=== PATIENT | male | born 1955 | race Caucasian/White ===

== ENCOUNTER 2020-05-22 20:02 | Inpatient (IN) | payer MEDICARE, MEDICAID ==
[~2020-05-22] VITALS: Ht 0 cm; Wt 53.0 kg
[2020-05-22 22:00] VITALS: BP 189/95
[2020-05-22 22:08] VITALS: BP 189/95
--- NOTE | 2020-05-22 22:08 | NUR ---
Telemetry admit from seanica LACEY VERNON admitted to Telemetry unit after SBAR received. Patient oriented to ALICIA MARTINEZ, primary RN, unit, room, bed, and unit policies regarding patient care and visiting hours. Patient now on continuous telemetry monitoring, tele box 28# and telemetry reading on arrival to unit is normal sinus rhythm. pt weighed by bedscale and encouraged to call if they need something. All questions and concerns addressed, patient verbalized understanding. pt is a0x4 , no s/s of distress or sob
--- NOTE | 2020-05-22 23:00 | NUR ---
Called/paged called re: new admit . Waiting for call back. Continue care.
[2020-05-22] MEDS ORDERED: LABETALOL HCL 5 MG/ML 4ML SYRINGE IV PRN (23:15)
[2020-05-22] MEDS ORDERED: MORPHINE SULF INJ 2 MG/ML SYRINGE 1ML IV PRN (23:15)
[2020-05-22] MEDS ORDERED: HYDROcodone-ACET 5/325MG TAB PO PRN (23:15)
[2020-05-22] MEDS ORDERED: ALBUTEROL SULF HFA 90MCG INH 200DOSE IN PRN (23:15)
[2020-05-22] MEDS ORDERED: NITROGLYCERIN 0.4 MG SL TAB SL PRN (23:15)
[2020-05-22] MEDS ORDERED: levoFLOXacin 500MG 100 ML IV ONE (23:30)
[2020-05-22] MEDS ORDERED: ENOXAPARIN SOD 60 MG/0.6 ML SYRINGE SC ONE (23:30)
--- NOTE | 2020-05-22 23:45 | NUR ---
returned call Dr. foley returned call, updated on patient status and reason for call, new orders received and read back and verify by dr. Dano bergeron.
[2020-05-23] MEDS: SODIUM CHLORIDE 0.9% 1,000 ML IV SCH ×2 (01:20→12:25)
[2020-05-23] MEDS ORDERED: ALBU2TAB4 INH (02:15)
[2020-05-23] MEDS ORDERED: CHOL20007 PO (02:15)
[2020-05-23] MEDS ORDERED: HYDR12.56 PO (02:15)
[2020-05-23] MEDS ORDERED: CARV12.544 PO (02:15)
[2020-05-23 05:00] VITALS: BP 122/78
[2020-05-23 05:37] LABS: Basophils # (auto) 0.1 10 ^3/uL (0-0.2); Eosinophils # (auto) 0.3 10 ^3/uL (0-0.8); Hemoglobin 16.1 g/dL (13.5-17.5); Lymphocytes # (auto) 2.1 10 ^3/uL (0.4-5.4); Monocytes # (auto) 1.6 10 ^3/uL (0-1.3); Neutrophils # (auto) 9.9 10 ^3/uL (1.6-8.6)
[2020-05-23 05:40] LABS: Basophils % (auto) 0.5 % (0.0-2.0); Eosinophils % (auto) 2.2 % (0.0-7.0); Hematocrit 45.3 % (41.0-53.0); Lymphocytes % (auto) 15.1 % (10.0-50.0); Mean Corpuscular Hemoglobin 33.9 pg (28.0-32.0); Mean Corpuscular Hgb Conc. 35.6 g/dL (32.0-36.0); Mean Corpuscular Volume 95.3 fL (80.0-100.0); Monocytes % (auto) 11.2 % (0.0-12.0); Nucleated Red Blood Cells % 0.1 %; Platelet Count (auto) 247 10^3/uL (140-450); Red Blood Cells 4.75 10^6/uL (4.5-5.90); White Blood Cell 13.9 10^3/uL (4.4-10.8)
[2020-05-23 05:52] LABS: Potassium 3.3 mmol/L (3.5-5.1)
[2020-05-23 06:02] LABS: Albumin 3.3 g/dL (3.4-5.0); Bilirubin, Total 0.8 mg/dL (0.2-1.0); Total Protein 6.5 g/dL (6.4-8.2)
--- NOTE | 2020-05-23 07:36 | NUR ---
end of shift note endorse pt care to day shift RN . pt a0x4 , no s/s of distress or sob
[2020-05-23 09:00] VITALS: BP 149/81
[2020-05-23] MEDS ORDERED: CHOLECALCIFEROL (VITD3) 2,000 UNIT CAP PO SCH (10:00)
[2020-05-23] MEDS ORDERED: HCTZ 25 MG TAB PO SCH (10:00)
[2020-05-23] MEDS: CARVEDILOL 12.5 MG TAB PO SCH ×2 (10:25→22:02)
[2020-05-23] MEDS: ENOXAPARIN SOD 60 MG/0.6 ML SYRINGE SC SCH ×2 (10:25→22:00)
[2020-05-23] MEDS: levoFLOXacin 500MG 100 ML IV SCH (10:25)
[2020-05-23] MEDS ORDERED: IOHEXOL 350 MG/ML 100ML IJ ONE (11:49)
[2020-05-23 13:00] VITALS: BP 128/85
[2020-05-23 13:57] VITALS: BP 149/81
[2020-05-23 15:25] LABS: INR 1.09 (0.9-1.15); Partial Thromboplastin Time 28.5 sec (23.0-31.2)
[2020-05-23] MEDS ORDERED: hydrALAZINE HCL 20 MG/ML VL IV PRN (15:30)
[2020-05-23 16:55] VITALS: BP 148/75
[2020-05-23] MEDS ORDERED: guaiFENesin 200 MG/10 ML UD PO PRN (18:15)
--- NOTE | 2020-05-23 19:10 | NUR ---
Opening Shift Note Patient is AOx4 w/ HOB at 30 degrees. Patient has no s/s of distress or SOB. No complaints of pain or discomfort. Patient bed locked in lowest position and call light is within reach. Discussed POC w/ patient and patient verbalized understanding. Will continue to monitor.
[2020-05-23] MEDS ORDERED: ALBUTEROL SULF 2.5 MG/0.5ML(0.5%) NEB SOLN NEB PRN (19:15)
[2020-05-23 21:00] VITALS: BP 151/95
[2020-05-23 21:14] LABS: Urine Bacteria NONE SEEN /hpf (None Seen); Urine Blood Negative /uL (Negative); Urine Specific Gravity 1.037 (1.001-1.035); Urine WBC 2 /hpf (0 - 3)
[2020-05-23] MEDS: ATORVASTATIN 20 MG TAB PO SCH (22:02)
[2020-05-24] VITALS (7 sets, daily range): BP systolic 129–155; BP diastolic 75–84
[2020-05-24] MEDS: SODIUM CHLORIDE 0.9% 1,000 ML IV SCH ×2 (01:55→15:26)
--- NOTE | 2020-05-24 07:30 | NUR ---
Opening Shift Note Assumed care of patient, awake and alert. No S/S of distress/SOB or pain. Instructed on POC and to call for assist PRN, will continue to monitor for changes Q1hr and PRN. Bed is locked and in lowest position. Call light within reach.
--- NOTE | 2020-05-24 07:41 | NUR ---
Respiratory note: ASSESSED PT FOR PRN MEDNEB TX. HR 71, RR 16, SPO2 97% ON ROOM AIR. BREATH SOUNDS CLEAR/DIM T/O. PT DENIES SOB. NO S/S OF DISTRESS. MEDNEB TX NOT INDICATED AT THIS TIME. PT IS AWARE OF ORDERED PRN TXS AND KNOWS TO CALL FOR RT IF NEEDED.
--- NOTE | 2020-05-24 08:00 | NUR ---
DR. RAYA PAGED REGARDING NO ORDER FOR LEFT HEART CATH, LAB VALUES FOR POTASSIUM AND SODIUM. DR. RAYA PUT IN ORDERS FOR LEFT HEART CATH. NO NEW ORDERS REGARDING LAB VALUES. PATIENT WILL BE WHEELED DOWN FOR PROCESS [facility]ER[facility] OPERATOR PROCEDURE WITH DR. RAYA.WILL CONTINUE TO MONITOR PATIENT.
[2020-05-24] MEDS ORDERED: IODIXANOL 320MG/ML 100ML BTL IV ONE (08:10)
[2020-05-24] MEDS ORDERED: LIDOCAINE 2%HCL (LOCAL ANESTH.) INJ 20ML MDV ONE (08:10)
--- NOTE | 2020-05-24 08:45 | NUR ---
PATIENT WHEELED DOWN TO [facility] FOR PROCEDURE WITH DR. SABA. PATIENT WAS TRANSFERRED VIA GURNEY WITH NO SIGNS OF DISTRESS, SOB OR PAIN. WILL AWAIT PATIENT RETURN.
[2020-05-24] MEDS: CARVEDILOL 12.5 MG TAB PO SCH ×2 (08:53→21:28)
[2020-05-24] MEDS ORDERED: ANGIOMAX 250 MG VIAL IV ONE (09:40)
[2020-05-24] MEDS ORDERED: SODIUM CHL 0.9% 50 ML ONE (09:40)
[2020-05-24] MEDS ORDERED: fentaNYL CITRATE 100 MCG/2 ML VL ONE (09:40)
[2020-05-24] MEDS ORDERED: MIDAZOLAM HCL 1MG/1ML-2 ML VIAL ONE (09:40)
[2020-05-24] MEDS ORDERED: HEPARIN SODIUM (PORCINE) 5000 UNITS/ML 1ML VIAL ONE (09:41)
[2020-05-24] MEDS ORDERED: VERAPAMIL 2.5MG/ML INJ 2ML VIAL IV ONE (09:41)
[2020-05-24] MEDS: ENOXAPARIN SOD 60 MG/0.6 ML SYRINGE SC SCH ×2 (10:00→21:29)
[2020-05-24] MEDS ORDERED: IOHEXOL 350 MG/ML 100ML IJ ONE (10:09)
[2020-05-24] MEDS ORDERED: ASPirin 325 MG TAB ONE (10:50)
[2020-05-24] MEDS ORDERED: TICAGRELOR 90 MG TAB ONE (10:50)
--- NOTE | 2020-05-24 11:37 | NUR ---
PER DISCHARGE PATIENT REQUIRES BRILINTA PRESCRIPTION UPON DISCHARGE.
--- NOTE | 2020-05-24 11:37 | NUR ---
RECEIVED REPORT FROM CLAIMS ASSOCIATE REGARDING PATIENT PROCEDURE WITH DR. SABA. PATIENT HAD 2 STENTS PLACED IN LAD WITH DR. SABA. PATIENT HAS VASC BAND ON RIGHT WRIST WHICH CAN DEFLATION CAN BE INITIATED AT 1215 PM. WILL CONTINUE TO MONITOR PATIENT.
--- NOTE | 2020-05-24 12:15 | NUR ---
INITIATED VASC BAND REMOVAL WITH 2ML. PATIENT TOLERATED WELL WITH NO SIGNS OF BLEEDING WILL CONTINUE TO MONITOR RIGHT WRIST VASC BAND. WILL CONTINUE VASC BAND PROTOCOL.
--- NOTE | 2020-05-24 12:30 | NUR ---
REMOVED 2ML FROM VASC BAND WITH NO SIGNS OF BLEEDING. WILL CONTINUE TO MONITOR VASC BAND. WILL WELL CONTINUE VASC BAND PROTOCOL.
--- NOTE | 2020-05-24 12:45 | NUR ---
VASC BAND REMOVED FROM RIGHT WRIST WITH NO SIGNS OF MAJOR BLEEDING. APPLIED 4X4 GAUZE AND TEGADERM. WILL CONTINUE TO MONITOR SITE.
[2020-05-24] MEDS: PANTOPRAZOLE 40 MG TAB PO SCH (15:24)
[2020-05-24] MEDS: CHOLECALCIFEROL (VITD3) 1,000UNIT=25mCg TAB PO SCH (15:24)
[2020-05-24] MEDS: levoFLOXacin 500MG 100 ML IV SCH (15:25)
--- NOTE | 2020-05-24 15:47 | NUR ---
PRESCRIPTION FOR BRILINTA IN CHART. PATIENT WILL GET PRESCRIPTION FILLED BY PHARMACY BEFORE DISCHARGED.
--- NOTE | 2020-05-24 15:49 | NUR ---
RACHEL ARANA WITH DR. WEST AT BEDSIDE FOR POC. RACHEL ARANA WROTE PRESCRIPTION FOR BRILINTA IN PATIENTS CHART. RACHEL ARANA STATED SHE WILL REVIEW PATIENTS LAB SODIUM AND POTASSIUM VALUES. PLAN FOR DISCHARGE TOMORROW. WILL CONTINUE TO MONITOR PATIENT.
--- NOTE | 2020-05-24 19:10 | NUR ---
Opening Shift Note Patient laying in bed resting with eyes closed on his left side. Asked patient to show right wrist so it can be assessed. Right wrist where VASC band d/c'd is dry and intact. No active bleeding, some bruising noted. No s/s of distress or SOB and no pain. Patient bed locked in lowest position w/ HOB at 30 degrees. POC discussed with patient and patient verbally agreed to understanding. Will continue to monitor.
[2020-05-24] MEDS: TICAGRELOR 90 MG TAB PO SCH (21:27)
[2020-05-24] MEDS: ATORVASTATIN 20 MG TAB PO SCH (21:28)
[2020-05-25 05:00] VITALS: BP 119/81
[2020-05-25] MEDS: SODIUM CHLORIDE 0.9% 1,000 ML IV SCH ×2 (05:26→17:51)
--- NOTE | 2020-05-25 08:43 | NUR ---
Respiratory note: ASSESSED PT FOR PRN MEDNEB TX. HR 97, RR 16, SPO2 97% ON ROOM AIR. EXPIRATORY WHEEZES HEARD. PT DOES NOT WANT TX AT THIS TIME. I ENCOURAGED TX, BUT PATIENT DID NOT WANT ONE AT THIS TIME. NO S/S OF DISTRESS. PT IS AWARE OF ORDERED PRN TXS AND KNOWS TO CALL FOR RT IF NEEDED.
[2020-05-25 09:00] VITALS: BP 155/92
[2020-05-25] MEDS: CHOLECALCIFEROL (VITD3) 1,000UNIT=25mCg TAB PO SCH (10:22)
[2020-05-25] MEDS: TICAGRELOR 90 MG TAB PO SCH ×2 (10:22→22:23)
[2020-05-25] MEDS: ASPirin 81 mg TAB PO SCH (10:22)
[2020-05-25] MEDS: PANTOPRAZOLE 40 MG TAB PO SCH (10:23)
[2020-05-25] MEDS: CARVEDILOL 12.5 MG TAB PO SCH ×2 (10:23→22:24)
[2020-05-25] MEDS: levoFLOXacin 500MG 100 ML IV SCH (10:23)
[2020-05-25] MEDS: ENOXAPARIN SOD 60 MG/0.6 ML SYRINGE SC SCH ×2 (10:24→22:23)
[2020-05-25 13:00] VITALS: BP 128/77
--- NOTE | 2020-05-25 13:49 | NUR ---
Nutrition Assessment Est energy needs [id number] kcal (25-30 kcal/kg BW 50.4kg) Est protein needs 40-50g (0.8-1g/kg BW 50.4kg) WIll reassess prn. Addendum: 05/25/[address] at [address] Amended: Links added.
[2020-05-25 17:00] VITALS: BP 139/72
--- NOTE | 2020-05-25 17:20 | NUR ---
[facility] OUT OF STOCK-- [facility] CALLED PT'S PREFERRED [facility]ARMACY AT [place]- HAVE [address] WEST AWARE OF SITUATION. PER MD: WILL BE COMING TO TALK TO PT. PT AND FAMILY MEMBER LEE AWARE OF SITUATION.
--- NOTE | 2020-05-25 19:40 | NUR ---
Opening Shift Note Assumed care of patient. Patient is awake, alert, and oriented X 4, resting in bed. No S/S of respiratory distress. Patient denies pain at this time. Bed in lowest locked position, side rails X 2 up, call light is within reach, cardiac leads placed correctly. POC discussed and patient instructed to call for assistance as needed. Will continue to monitor for changes Q1hr and PRN.
[2020-05-25 20:00] VITALS: BP 149/77
[2020-05-25 22:00] VITALS: BP 149/77
[2020-05-25] MEDS: ATORVASTATIN 20 MG TAB PO SCH (22:23)
[2020-05-26 04:51] VITALS: BP 116/79
[2020-05-26] MEDS: SODIUM CHLORIDE 0.9% 1,000 ML IV SCH (07:15)
[2020-05-26 08:45] VITALS: BP 135/78
[2020-05-26] MEDS: CARVEDILOL 12.5 MG TAB PO SCH ×2 (09:22→21:39)
[2020-05-26] MEDS: PANTOPRAZOLE 40 MG TAB PO SCH (09:23)
[2020-05-26] MEDS: ASPirin 81 mg TAB PO SCH (09:23)
[2020-05-26] MEDS: CHOLECALCIFEROL (VITD3) 1,000UNIT=25mCg TAB PO SCH (09:23)
[2020-05-26] MEDS: TICAGRELOR 90 MG TAB PO SCH ×2 (09:24→21:38)
[2020-05-26] MEDS: ENOXAPARIN SOD 60 MG/0.6 ML SYRINGE SC SCH (09:26)
[2020-05-26] MEDS: levoFLOXacin 500MG 100 ML IV SCH (09:27)
[2020-05-26 13:00] VITALS: BP 124/79
[2020-05-26 16:18] VITALS: BP 119/72
[2020-05-26 18:47] LABS: Hematocrit 41.6 % (41.0-53.0); Hemoglobin 14.6 g/dL (13.5-17.5); Mean Corpuscular Hemoglobin 33.4 pg (28.0-32.0); Mean Corpuscular Hgb Conc. 35.2 g/dL (32.0-36.0); Mean Corpuscular Volume 95.1 fL (80.0-100.0); Platelet Count (auto) 246 10^3/uL (140-450); Red Blood Cells 4.38 10^6/uL (4.5-5.90); Red Cell Distribution Width 12.9 % (11.8-14.3)
[2020-05-26 18:49] LABS: Albumin 3.3 g/dL (3.4-5.0); Basophils % (manual) 0 (0.0-2.0); Blast Cells 0; Calcium 8.3 mg/dL (8.5-10.1); Myelocytes % 0; Potassium 3.3 mmol/L (3.5-5.1); Promyelocytes % 0; Reactive Lymphocytes 0
[2020-05-26 18:53] LABS: BUN/Creatinine Ratio 14.5; Total Protein 6.2 g/dL (6.4-8.2)
--- NOTE | 2020-05-26 19:55 | NUR ---
Opening Shift Note Assumed care of patient. Patient is awake and alert, oriented X 4. No S/S of respiratory distress. Respirations are regular and non-labored. On RA with SpO2 98%. Patient denies pain at this time. Bed in lowest locked position, side rails X 2 up, call light is within reach, pathology tech leads correctly placed. POC discussed and pt instructed to call for assistance as needed. Will continue to monitor for changes Q1hr and PRN.
[2020-05-26 20:00] VITALS: BP 148/68
[2020-05-26 20:35] LABS: Band Neutrophils % (manual) 2; Eosinophils % (manual) 1 (0-7); Lymphocytes % (manual) 15 (10.0-50.0); Metamyelocytes % 1; Monocytes % (manual) 11 (0-12)
[2020-05-26] MEDS: ATORVASTATIN 20 MG TAB PO SCH (21:38)
[2020-05-26 22:00] VITALS: BP 148/68
[2020-05-27 05:07] VITALS: BP 145/69
--- NOTE | 2020-05-27 07:30 | NUR ---
opening shift note Patient in bed AOx4. No s/s of distress or SOB noted at this time. Patient denies pain. Patient updated on POC and to call for assistance as needed. Patient verbalized understanding. Bed in lowest locked position, call light within reach, will continue care.
[2020-05-27 09:00] VITALS: BP 159/83
[2020-05-27] MEDS: ASPirin 81 mg TAB PO SCH (10:32)
[2020-05-27] MEDS: TICAGRELOR 90 MG TAB PO SCH (10:32)
[2020-05-27] MEDS: levoFLOXacin 500MG 100 ML IV SCH (10:32)
[2020-05-27] MEDS: PANTOPRAZOLE 40 MG TAB PO SCH (10:32)
[2020-05-27] MEDS: CHOLECALCIFEROL (VITD3) 1,000UNIT=25mCg TAB PO SCH (10:33)
[2020-05-27] MEDS: CARVEDILOL 12.5 MG TAB PO SCH (10:33)
--- NOTE | 2020-05-27 11:00 | NUR ---
Called [facility] Gomez in [place] Called [facility]ly gomez in [place] to verify that Brilinta medication is available for prescription fill. Per pharmacist medication will be available after 1500. Will notify
[2020-05-27 13:00] VITALS: BP 116/69
--- NOTE | 2020-05-27 15:30 | NUR ---
Received call from RACHEL Nevarez Received call from Dr. Coronado's LPN [employer] Geri with D/C orders. Check EMAR for more information. Will implement orders and continue care.
[2020-05-27 17:00] VITALS: BP 144/78
[2020-05-27 17:56] VITALS: BP 144/78
--- NOTE | 2020-05-27 18:30 | NUR ---
DISCHARGE Discharge instructions given as ordered. Follow up appointment information for May 6 with PCP given to patient. All questions and concerns addressed. Patient verbalized understanding. Home medications held in Pharmacy returned to patient. IV removed with catheter intact, pressure dressing applied. Telemetry unit returned to ICU. Patient taken to vehicle via wheelchair with all personal belongings, accompanied by staff and family member. No distress noted at time of departure.
[2020-05-28] MEDS ORDERED: levoFLOXacin 500 MG TAB PO SCH (10:00)
== END 2020-05-27 18:30 | disposition home or self-care (01) | DRG 246 ==
LOC: TELE-CENTR 22:33
PROVIDERS: ADMIT Specialist; ATTEND Internal Medicine
PROC: 027035Z Dilation of Coronary Artery, One Artery with Two Drug-eluting Intraluminal Devices, Percutaneous Approach (ICD-10-PCS; principal; 2020-05-24)
PROC: 4A023N7 Measurement of Cardiac Sampling and Pressure, Left Heart, Percutaneous Approach (ICD-10-PCS; 2020-05-24)
PROC: B2151ZZ Fluoroscopy of Left Heart using Low Osmolar Contrast (ICD-10-PCS; 2020-05-24)
PROC: B2111ZZ Fluoroscopy of Multiple Coronary Arteries using Low Osmolar Contrast (ICD-10-PCS; 2020-05-24)
DX: I21.4 Non-ST elevation (NSTEMI) myocardial infarction (principal); I50.31 Acute diastolic (congestive) heart failure; E87.1 Hypo-osmolality and hyponatremia; I16.1 Hypertensive emergency; Z68.43 Body mass index [BMI] 50.0-59.9, adult; E78.5 Hyperlipidemia, unspecified; F10.10 Alcohol abuse, uncomplicated; E66.01 Morbid (severe) obesity due to excess calories; E87.6 Hypokalemia; Z87.891 Personal history of nicotine dependence; Z82.49 Family history of ischemic heart disease and other diseases of the circulatory system; J43.9 Emphysema, unspecified; I07.1 Rheumatic tricuspid insufficiency; Z20.828 Contact with and (suspected) exposure to other viral communicable diseases; I25.10 Atherosclerotic heart disease of native coronary artery without angina pectoris; I11.0 Hypertensive heart disease with heart failure
CPT/HCPCS: 92928; 93458; C1875; C9606; 36415; 71045; 71275; 80053; 81001; 83735; 84484; 85007; 85025; 85027; 85610; 85730; 86850; 86900; 86901; 87081; 87426; 93306; 99152; 99153; C1874; G0378; J1956; J2250; J3490; Q9967